=== PATIENT | female | born 1995 | race Caucasian/White ===

== ENCOUNTER 2018-12-08 19:24 | Emergency (ER) | payer OTHER ==
--- NOTE | 2018-12-08 20:07 | EDPHY ---
H & P Smoking Status: Never smoked Time Seen by Provider: 12/08/18 19:54 HPI/ROS: CHIEF COMPLAINT: Right ankle pain HISTORY OF PRESENT ILLNESS: 23-year-old female via private vehicle complaining of acute right lateral ankle pain after she was playing basketball, rolled her foot. She is unable to bear weight secondary to pain to the lateral malleolus. She felt a "pop". Denies gross instability. Denies foot pain. Denies proximal tibia or fibula pain. Denies calcaneus pain. REVIEW OF SYSTEMS: A ten point review of systems was performed and is negative with the exception of the items mentioned in the HPI PHYSICAL EXAM (Prior to examination, patient consented to physical exam, hands were washed and my usual and customary physical exam procedures followed) 1) GENERAL: Well-developed, well-nourished, alert and oriented. Appears to be in no acute distress. 2) HEAD: Normocephalic 3) HEENT: Pupils equal, round, reactive to light bilaterally. 4) LUNGS: Breathing comfortably. 5) MUSCULOSKELETAL: Soft tissue swelling to the lateral malleolus with associated tenderness. proximal tibia and fibula nontender .5th MT nontender negative Craig test, compartments soft 6) SKIN: Intact 7) VASCULAR: DP,PT pulses and cap refill present and brisk DIFFERENTIAL DIAGNOSIS: in no particular order including but not limited to fracture, sprain, compartment syndrome Xray of the right ankle interpreted by myself: no definitive acute osseous abnormality Procedure: Crutches indications for crutch use discussed with patient. Patient fitted for crutches by ER staff. Observed ambulating with crutches. I think the patient has the capacity to safely use crutches. Usual and customary crutch walking precautions provided Procedure: Splint A rajni boot splint was applied by ER residential pest control technician. After application of the splint I returned and re-examined the patient. The splint was adequately immobilizing the joint and distal to the splint the patient's circulation and sensation were intact. Patient shows no signs of compartment syndrome. Was given orthopedic precautions. (Raymundo Trujillo) Constitutional: Initial Vital Signs Heart Rate 97 12/08/18 19:28 Respiratory Rate 16 12/08/18 19:28 Blood Pressure 143/106 H 12/08/18 19:28 O2 Sat (%) 98 12/08/18 19:28 O2 Delivery Mode Room Air Allergies/Adverse Reactions: No Known Allergies Allergy (Unverified 12/08/18 19:28) Home Medications: Medication Instructions Recorded Tablet 12/08/18 MDM/Departure - MDM Imaging Results: Images reviewed myself (Raymundo Trujillo) Medications Given: Discontinued Medications Hydrocodone Bitart/Acetaminophen ([place] 5/325mg Prepack#6) 1 btl TAKEHOME EDNOW ONE Stop: 12/08/18 20:25 Last Admin: 12/08/18 20:34 Dose: 1 btl ED Course/Re-evaluation: Patient and I discussed limitations of x-ray, notably that non osseous injury is not ruled out. Stressed the importance of orthopedic follow-up. Rajni boot crutches, analgesia provided as well as my usual and customary orthopedic precautions instructions. She feels comfortable being discharged. Care of patient under supervision of secondary supervising physician Dr Santillan . (Raymundo Trujillo) The patient was evaluated and managed by the physician special events assistant. I have reviewed this chart and I agree with the findings and plan of care as documented , as indicated by my signature. I am the secondary supervising physician. ( Maryanne Santillan) - Depart Disposition: Home, Routine, Self-Care Clinical Impression: Basketball activities Right ankle sprain Qualifiers: Encounter type: initial encounter Involved ligament of ankle: unspecified ligament Qualified Code(s): S93.401A - Sprain of unspecified ligament of right ankle, initial encounter Condition: Good Instructions: Hydrocodone/Acetaminophen (By mouth), Ankle Sprain (ED) Additional Instructions: Return to the ER immediately if you experience discoloration, have worsening pain, numbness, tingling, or any other symptoms that concern you. If you received x-rays in the emergency department today, be advised, that ligamentous , tendon, muscular, and other non-bony injury cannot be fully ruled out. Try to keep your affected extremity elevated above the level of your chest, and keep cold packs on the affected area, for the next 48 hours. Adult Pain & Fever Control: We recommend Acetaminophen (Tylenol) and Ibuprofen (Motrin,Advil) for pain and fever control. When fever is high or pain severe, both drugs can be used at the same time, but at different intervals. Please note the time differences. Your dose is: Acetaminophen 650mg every 4 to 6 hours Ibuprofen 600mg every 6 hours with food OR Note: do not take Acetaminophen with Hydrocodone (Vicodin, Lortab) or Oycodone (Percocet). These medications also contain Acetaminophen. No more than 3000mg of Acetaminophen should be taken in 24 hours (for an adult). Referrals: Josue Turner MD [Medical Doctor] - As per Instructions
[2018-12-08] MEDS ORDERED: HYDROCOD/APAP 5/325 PREPACK#6 BTL TAKEHOME ONE (20:24)
[2018-12-08 20:51] VITALS: BP 112/77
== END 2018-12-08 20:50 | disposition home or self-care (01) ==
DX: S93.401A Sprain of unspecified ligament of right ankle, initial encounter (principal); X50.1XXA Overexertion from prolonged static or awkward postures, initial encounter; Y93.67 Activity, basketball
CPT/HCPCS: L4386